=== PATIENT | female | born 1995 | race Native Hawaiian/Other Pacific Islander ===

== ENCOUNTER 2021-07-07 16:36 | Outpatient (CLI) | payer OTHER ==
[2021-07-07 17:11] LABS: PLATELET COUNT 266 K/uL (152-353)
[2021-07-07 17:22] LABS: POTASSIUM 4.4 mmol/L (3.6-5.2)
== END 2021-07-07 21:22 | disposition home or self-care (01) ==
LOC: LAB 16:36
PROVIDERS: ATTEND Nurse Practitioner Family
DX: R42 Dizziness and giddiness (principal)
CPT/HCPCS: 80053; 85027

== ENCOUNTER 2021-11-17 09:20 | Outpatient (CLI) | payer OTHER ==
[2021-11-17 09:49] LABS: PLATELET COUNT 266 K/uL (152-353)
[2021-11-17 09:50] LABS: POTASSIUM 4.1 mmol/L (3.6-5.2)
== END 2021-11-17 19:00 | disposition home or self-care (01) ==
LOC: CT 09:20
PROVIDERS: ATTEND Nurse Practitioner Family
DX: R51.9 Headache, unspecified (principal)
CPT/HCPCS: 36415; 80053; 85027; 85652; 86140